=== PATIENT | male | born 1995 | race Caucasian/White ===

== ENCOUNTER 2022-10-25 10:37 | Emergency (ER) | payer OTHER ==
[2022-10-25] MEDS ORDERED: Ketorolac Tromethamine 30 MG/ML VIAL ONE (11:26)
== END 2022-10-25 12:39 | disposition home or self-care (01) ==
LOC: ERS 10:37
DX: M54.50 Low back pain, unspecified (principal); S80.02XA Contusion of left knee, initial encounter; W10.2XXA Fall (on)(from) incline, initial encounter
CPT/HCPCS: 96372; J1885